=== PATIENT | male | born 2000 | race Asian ===

== ENCOUNTER 2018-07-24 17:26 | Emergency (ER) | payer OTHER ==
[~2018-07-24] VITALS: Ht 170.2 cm; Wt 72.0 kg
[2018-07-24 17:41] VITALS: TEMP 36.9; Ht 170.2 cm; Wt 72.0 kg
[2018-07-24 18:22] LABS: BASO % 0.4 %; BASO ABS # 0.02 K/uL (0-0.2); EOS % 0.4 %; EOS ABS # 0.02 K/uL (0-0.5); HEMOGLOBIN 16.8 g/dL (14.0-18.0); LYMPH % 40.8 %; LYMPH ABS # 1.89 K/uL (1.2-3.4); MEAN CELL VOLUME 86.4 fL (80-100); MEAN CORPUSCULAR HEMOGLOBIN 29.6 pg (25-34); MEAN CORPUSCULAR HGB CONC 34.3 g/dl (32-36); MEAN PLATELET VOLUME 10.3 fL (7.4-10.4); MONO % 7.6 %; MONO ABS # 0.35 K/uL (0.11-0.59); NEUT % 50.8 %; NEUT ABS # 2.35 K/uL (1.4-6.5); PLATELET COUNT 199 K/uL (130-400); RED CELL DISTRIBUTION WIDTH CV 13.2 % (11.5-14.5); RED CELL DISTRIBUTION WIDTH SD 41.7 fL (36.4-46.3); WHITE BLOOD COUNT 4.63 K/uL (4.8-10.8)
[2018-07-24 18:49] LABS: ALBUMIN 4.7 gm/dl (3.4-5.0); CALCIUM 9.1 mg/dl (8.5-10.1); CREATININE 0.93 mg/dl (0.60-1.40); POTASSIUM 4.2 mmol/L (3.5-5.1); TOTAL PROTEIN 8.2 gm/dl (6.4-8.2)
[2018-07-24 20:02] VITALS: BP 137/71; PULSE 64; O2SAT 99
--- NOTE | 2018-07-24 20:41 | EMERGENCY ROOM VISIT NOTE ---
History Report prepared by Kenna: Judith Galdamez Under the Supervision of: Paulette SheehanO. First contact with patient: 17:47 Chief Complaint: MENTAL HEALTH EVALUATION Stated Complaint: MENTAL HEALTH PROBLEMS - [facility] REFERRED History of Present Illness The patient is a 18 year old male who presents to the Emergency Room for a mental health evaluation. The patient states that he thinks that people can hear his thoughts. He notes that this is not a reoccurring issue, that it onset recently, and it is a constant issue. The patient denies suicidal or homicidal ideation. He states that he feels like someone is out to get him but is not sure who. He states that this is a general feeling and there is no one in particular that he thinks is trying to get to him. The patient states that when he is walking around campus he feels they are trying to hurt him. He states that he hears voices from girls and guys and he talks to them in his head. He states that he tries not to look people in the eyes because he is afraid they will see him glaring at them. The patient states that he currently lives by himself and that most of his family lives in [place] with the exception of his older brother, who lives in [place]. He notes that he has been going to classes. The patient has not been eating as much as normal. Source of History: patient Onset: recently Position: head Quality: other (paranoia) Timing: constant Modifying Factors (Worsening): other (eye contact) Note: The patient states that he hears voices, has paranoia, and is fasting. Review of Systems See HPI for pertinent positives & negatives. A total of 10 systems reviewed and were otherwise negative. Family History Patient reports no known family medical history. Social History Smoking Status: Never Smoker Marital Status: single Housing Status: lives alone Occupation Status: student Current/Historical Medications Miscellaneous Medications None (Patient States No Home Meds) Allergies Coded Allergies: No Known Allergies (Unverified , 10/01/12) Physical Exam Vital Signs Date Time Temp Pulse Resp B/P (MAP) Pulse Ox O2 Delivery O2 Flow Rate FiO2 07/24/18 20:02 64 18 137/71 99 07/24/18 17:41 36.9 67 18 153/84 98 Room Air Physical Exam GENERAL: Sitting up in bed, alert, well appearing, well nourished, no distress, non-toxic EYE EXAM: normal conjunctiva. OROPHARYNX: no exudate, no erythema, lips, buccal mucosa, and tongue normal and mucous membranes are moist NECK: supple, no nuchal rigidity, no adenopathy, non-tender LUNGS: Clear to auscultation. Normal chest wall mechanics HEART: no murmurs, S1 normal and S2 normal ABDOMEN: abdomen soft, non-tender, normo-active bowel sounds, no masses, no rebound or guarding. BACK: Back is symmetrical on inspection and there is no deformity, no midline tenderness, no CVA tenderness. SKIN: no rashes and no bruising UPPER EXTREMITIES: upper extremities are grossly normal. LOWER EXTREMITIES: No pitting edema. NEURO EXAM: Normal sensorium, cranial nerves II-XII grossly intact, normal speech, no gross weakness of arms, no gross weakness of legs. PSYCH: admits to paranoia, auditory hallucinations, and broadcasting thoughts. Denies suicidal and homicidal ideations Medical Decision & Procedures Laboratory Results 07/24/18 18:00 Red Blood Count 5.67, Mean Corpuscular Volume 86.4, Mean Corpuscular Hemoglobin 29.6, Mean Corpuscular Hemoglobin Concent 34.3, Mean Platelet Volume 10.3, Neutrophils (%) (Auto) 50.8, Lymphocytes (%) (Auto) 40.8, Monocytes (%) (Auto) 7.6, Eosinophils (%) (Auto) 0.4, Basophils (%) (Auto) 0.4, Neutrophils # (Auto) 2.35, Lymphocytes # (Auto) 1.89, Monocytes # (Auto) 0.35, Eosinophils # (Auto) 0.02, Basophils # (Auto) 0.02 07/24/18 18:00 Test 07/24/18 17:50 07/24/18 18:00 07/24/18 18:12 Urine Color YELLOW Urine Appearance CLEAR (CLEAR) Urine pH 5.0 (4.5-7.5) Urine Specific [place] 1.011 (1.000-1.030) Urine Protein NEG (NEG) Urine Glucose (UA) NEG (NEG) Urine Ketones 1+ (NEG) Urine Occult Blood NEG (NEG) Urine Nitrite NEG (NEG) Urine Bilirubin NEG (NEG) Urine Urobilinogen NEG (NEG) Urine Leukocyte Esterase NEG (NEG) Urine Opiates Screen NEG (NEG) Urine Methadone, Qualitative NEG (NEG) Urine Barbiturates NEG (NEG) Urine Phencyclidine (PCP) Level NEG (NEG) Ur Amphetamine/Methamphetamine NEG (NEG) MDMA (Ecstasy) Screen NEG (NEG) Urine Benzodiazepines Screen NEG (NEG) Urine Cocaine Metabolite NEG (NEG) Urine Marijuana (THC) NEG (NEG) White Blood Count 4.63 K/uL (4.8-10.8) Red Blood Count 5.67 M/uL (4.7-6.1) Hemoglobin 16.8 g/dL (14.0-18.0) Hematocrit 49.0 % (42-52) Mean Corpuscular Volume 86.4 fL (80-100) Mean Corpuscular Hemoglobin 29.6 pg (25-34) Mean Corpuscular Hemoglobin Concent 34.3 g/dl (32-36) Platelet Count 199 K/uL (130-400) Mean Platelet Volume 10.3 fL (7.4-10.4) Neutrophils (%) (Auto) 50.8 % Lymphocytes (%) (Auto) 40.8 % Monocytes (%) (Auto) 7.6 % Eosinophils (%) (Auto) 0.4 % Basophils (%) (Auto) 0.4 % Neutrophils # (Auto) 2.35 K/uL (1.4-6.5) Lymphocytes # (Auto) 1.89 K/uL (1.2-3.4) Monocytes # (Auto) 0.35 K/uL (0.11-0.59) Eosinophils # (Auto) 0.02 K/uL (0-0.5) Basophils # (Auto) 0.02 K/uL (0-0.2) RDW Standard Deviation 41.7 fL (36.4-46.3) RDW Coefficient of Variation 13.2 % (11.5-14.5) Immature Granulocyte % (Auto) 0.0 % Immature Granulocyte # (Auto) 0.00 K/uL (0.00-0.02) Anion Gap 13.0 mmol/L (3-11) Est Creatinine Clear Calc Drug Dose 118.5 ml/min Estimated GFR () 136.5 Estimated GFR (Non- 117.8 BUN/Creatinine Ratio 14.2 (10-20) Calcium Level 9.1 mg/dl (8.5-10.1) Total Bilirubin 1.4 mg/dl (0.2-1) Direct Bilirubin 0.2 mg/dl (0-0.2) Aspartate Amino Transf (AST/SGOT) 14 U/L (15-37) Alanine Aminotransferase (ALT/SGPT) 31 U/L (12-78) Alkaline Phosphatase 85 U/L (45-117) Total Protein 8.2 gm/dl (6.4-8.2) Albumin 4.7 gm/dl (3.4-5.0) Thyroid Stimulating Hormone (TSH) 1.190 uIu/ml (0.300-4.500) Ethyl Alcohol mg/dL < 3.0 mg/dl (0-3) Bedside Glucose 64 mg/dl (70-99) Laboratory results per my review. ED Course ED COURSE: Vital signs were reviewed and showed situational hypertension The patients medical record was reviewed The above diagnostic studies were performed and reviewed. ED treatments and interventions as stated above. 1748: The patient was evaluated in room A6. A complete history and physical examination was performed. 1941: Upon reevaluation, the patient is resting comfortably. I discussed my findings with the patient and he understands and agrees with the treatment plan. Based on the patients age, coexisting illnesses, exam and lab findings the decision to treat as an outpatient was made. The patient remained stable while under my care. The patient appeared well at the time of discharge. Medical Decision Differential diagnosis: Etiologies such as mood disorder, infection, hypoglycemia, electrolyte abnormalities, cardiac sources, intracerebral event, toxicologic, neurologic, as well as others were entertained. Patient is a 18-year-old male who presents the ER he was referred in by caps as he believes that his broadcasting his thoughts. He is still going to class. He denies any suicidal homicidal ideations. He has no psychiatric history. He does not take any medications. Family is from [place] but he does live here with his brother who previously graduated per patient. CBC along with BMP, LFTs, bilirubin and TSH were remarkable for mild hypoglycemia. Tox, alcohol and UA were negative. Patient denies any suicidal or homicidal ideations. He did note that he feels as though people can read his thoughts. He is eating and drinking but less than usual. He is showering and bathing. He is looking forward to school and graduating. Patient does not want to come in on 201. Patient does have insight and denies any suicidal homicidal ideations. Although he is slightly paranoid and believes that people can hear his thoughts I do not believe at this time and there is anything I will allow me to 302 him. I asked him on multiple occasions to come in. Patient was evaluated by Pedro and Marquita from her psychiatric care managers. They note that he is a low risk for suicide standpoint and does not meet criteria at this time to come in. Patient was updated bedside and discharged follow-up with caps. We did fax all the information over to them. Patient was agreeable to at least follow back up with caps. Discussed with Pt concerning signs and symptoms to watch out for. Pt was instructed to follow up with their PCP and discussed with the patient their option to return to the ED at anytime for persistent or worsening symptoms. The appropriate anticipatory guidance and out-patient management, including indications for return to the emergency department, were explained at length to the patient and understood. Medication Reconcilliation Current Medication List: was personally reviewed by me Blood Pressure Screening Patient's blood pressure: Elevated blood pressure Blood pressure disposition: Elevated BP felt to be situational Impression Primary Impression: Mood disorder Additional Impression: Paranoia Scribe Attestation The scribe's documentation has been prepared under my direction and personally reviewed by me in its entirety. I confirm that the note above accurately reflects all work, treatment, procedures, and medical decision making performed by me. Departure Information Dispostion Home / Self-Care Referrals No Doctor, Assigned (PCP) Forms HOME CARE DOCUMENTATION FORM, IMPORTANT VISIT INFORMATION Patient Instructions My [facility] Additional Instructions Please follow up with your primary care doctor with in the next 24 hours. Any worsening of your symptoms, please return to the ED immediately. This includes any thoughts of wanting to self-harm, thoughts of harming someone else, not eating or drinking, hearing more voices, seeing people that are not there, or any other concerning signs or symptoms from your standpoint. Problem Qualifiers
== END 2018-07-24 20:03 | disposition home or self-care (01) ==
LOC: C.EDB 17:26 → C.EDA 20:03
DX: F39 Unspecified mood [affective] disorder (principal); F22 Delusional disorders